=== PATIENT | male | born 1945 | race Caucasian/White ===

== ENCOUNTER 2016-05-15 10:08 | Outpatient (CLI) | payer MEDICARE ==
--- NOTE | 2016-05-15 13:24 | DIAGNOSTIC IMAGING REPORT ---
PROCEDURE: XR BARIUM SWALLOW INDICATION: Dysphagia. Difficulty swallowing pills. TECHNIQUE: Double contrast study. Fluoroscopy time, 2.3 minutes; 2290.06 mGy. 87 fluoroscopic images (including cine fluoroscopy of the esophagus). COMPARISON: None. FINDINGS: Pharyngoesophagus demonstrates mild to moderate prominence of the posterior cricopharyngeus muscle with 30% narrowing of the proximal esophagus. There is no evidence of aspiration. The patient was able to swallow barium impregnated pill without difficulty. There are mild tertiary contractions of the mid and distal esophagus. Esophagus is otherwise normal. There is no evidence of reflux. IMPRESSION: 1. There is mild to moderate prominence of the posterior cricopharyngeus muscle resulting in 30% narrowing of the proximal esophagus. However, there was no evidence of aspiration and the patient was able to swallow barium pill without difficulty. 2. Mild tertiary contractions of the mid and distal esophagus (may be within normal limits in a patient of this age). 3. Otherwise negative esophagram. 4. Findings discussed with the patient and called to Dr. Zuleta.
== END 2016-05-15 23:00 ==
LOC: XR SRH 10:08
DX: R13.14 Dysphagia, pharyngoesophageal phase (principal)

== ENCOUNTER 2016-06-16 13:46 | Emergency (ER) | payer MEDICARE ==
--- NOTE | 2016-06-16 15:38 | DIAGNOSTIC IMAGING REPORT ---
PROCEDURE: XR CHEST 1 VIEW INDICATION: Dizziness. Presyncope. TECHNIQUE: Portable AP view (1450 hours). COMPARISON: None. FINDINGS: Allowing for suboptimal inspiration, there is mild volume loss at the right lung base. Left lung is clear. Heart and mediastinum are normal. Thorax is normal. IMPRESSION: 1. Allowing for suboptimal inspiration, there is mild volume loss at the right lung base. 2. Otherwise negative chest.
--- NOTE | 2016-06-16 16:46 | DIAGNOSTIC IMAGING REPORT ---
PROCEDURE: CT HEAD WITHOUT CONTRAST INDICATION: Severe dizziness. TECHNIQUE: Noncontrast axial images with sagittal and coronal reformations. COMPARISON: None. FINDINGS: Allowing for mild motion, and ventricles are within normal limits. No evidence of an acute process or hemorrhage. There is mild mucosal thickening in the ethmoid air cells (most likely chronic). Sinuses and mastoids are otherwise normal. IMPRESSION: 1. Allowing for mild motion, negative head CT. 2. Mild mucosal thickening in the ethmoid air cells (most likely chronic). 3. Findings discussed with Dr. Ha Quintero at [address] scans at this facility use dose modulation, iterative reconstruction, and/or weight-based dosing when appropriate to reduce radiation dose to as low as reasonably achievable.
--- NOTE | 2016-06-16 17:09 | ED ORDER SUMMARY ---
..... Patient: JAYLEN POWER OrderSheet [facility] VisitID: [id number] [address] [place] [address] 70y, M Registration Date/Time: 06/16/2016 ORDER SHEET Weight: 115.2 kg (stated) Allergies: No Known Drug Allergy GENERAL ORDERS: POC Glucose (14:09 06/16/2016 Merline SOLORZANO) (14:11 JSimbeck R.N.) Chest 1V Urgent (14:13 06/16/2016 Merline SOLORZANO) (Ack 14:16 LMuller) (16:03 LMuller) Staff Developer (Continuous) (14:14 06/16/2016 Merline SOLORZANO) (14:25 JSimbeck R.N.) CBC w Diff Urgent (14:14 06/16/2016 Merline SOLORZANO) (Ack 14:16 LMuller) (15:52 JSimbeck R.N.) CMP Urgent (14:14 06/16/2016 Merline SOLORZANO) (Ack 14:16 LMuller) (15:52 JSimbeck R.N.) UA-Culture if indicated Urgent (14:14 06/16/2016 Merlnie SOLORZANO) (Ack 14:16 LMuller) (15:53 MWinterer R.N.) PT with INR Urgent (14:14 06/16/2016 Merline SOLORZANO) (Ack 14:16 LMuller) (15:52 JSimbeck R.N.) PTT Urgent (14:14 06/16/2016 Merline SOLORZANO) (Ack 14:16 LMuller) (15:52 JSimbeck R.N.) Amylase Urgent (14:14 06/16/2016 Merline SOLORZANO) (Ack 14:16 LMuller) (15:52 JSimbeck R.N.) Lipase Urgent (14:14 06/16/2016 Merline SOLORZANO) (Ack 14:16 LMuller) (15:52 JSimbeck R.N.) CPK Urgent (14:14 06/16/2016 Merline SOLORZANO) (Ack 14:16 LMuller) (15:52 JSimbeck R.N.) Troponin-I Urgent (14:14 06/16/2016 Merline SOLORZANO) (Ack 14:16 LMuller) (15:52 JSimbeck R.N.) Oxygen (2 L/min) (NC) (14:14 06/16/2016 Merline SOLORZANO) (14:48 JSimbeck R.N.) Pulse oximeter (14:14 06/16/2016 Merline SOLORZANO) (14:25 JSimbeck R.N.) EKG - ER Stat (14:14 06/16/2016 Merline SOLORZANO) (Ack 14:16 LMuller) (14:34 LMuller) Vitals - Orthostatic (14:14 06/16/2016 Merline SOLORZANO) (15:52 JSimbeck R.N.) Urine Drug Screen Urgent (14:14 06/16/2016 Merline SOLORZANO) (Ack 14:16 LMuller) (15:53 MWinterer R.N.) CT Head wo Cont Urgent (16:00 06/16/2016 Merline SOOLRZANO) (Ack 16:03 LMuller) (16:17 Phong) TSH Urgent (16:44 06/16/2016 Merline SOLORZANO) (16:46 LMuller) MEDICATION ORDERS: IV FLUIDS: IV Saline Lock (14:14 06/16/2016 Merline SOLORZANO) (14:48 JSimbeck R.N.) ORDER SHEET NOTES: [Electronically signed by Ernie Montemayor R.N. (17:22 06/16/2016)] [Electronically signed by Ha Quintero MD (18:07 06/16/2016)] [Electronically locked/signed by Ernie Montemayor R.N. (17:22 06/16/2016)]
--- NOTE | 2016-06-16 17:09 | ED ORDER SUMMARY ---
..... Patient: JAYLEN POWER OrderSheet [facility] VisitID: [id number] [address] [place] [address] 70y, M Registration Date/Time: 06/16/2016 ORDER SHEET Weight: 115.2 kg (stated) Allergies: No Known Drug Allergy GENERAL ORDERS: POC Glucose (14:09 06/16/2016 Merline SOLORZANO) (14:11 JSimbeck R.N.) Chest 1V Urgent (14:13 06/16/2016 Merline SOLORZANO) (Ack 14:16 LMuller) (16:03 LMuller) Certified Energy Manager (Continuous) (14:14 06/16/2016 Merline SOLORZANO) (14:25 JSimbeck R.N.) CBC w Diff Urgent (14:14 06/16/2016 Merline SOLORZANO) (Ack 14:16 LMuller) (15:52 JSimbeck R.N.) CMP Urgent (14:14 06/16/2016 Merline SOLORZANO) (Ack 14:16 LMuller) (15:52 JSimbeck R.N.) UA-Culture if indicated Urgent (14:14 06/16/2016 Merline SOLORZANO) (Ack 14:16 LMuller) (15:53 MWinterer R.N.) PT with INR Urgent (14:14 06/16/2016 Merline SOLORZANO) (Ack 14:16 LMuller) (15:52 JSimbeck R.N.) PTT Urgent (14:14 06/16/2016 Merline SOLORZANO) (Ack 14:16 LMuller) (15:52 JSimbeck R.N.) Amylase Urgent (14:14 06/16/2016 Merline SOLORZANO) (Ack 14:16 LMuller) (15:52 JSimbeck R.N.) Lipase Urgent (14:14 06/16/2016 Merline SOLORZANO) (Ack 14:16 LMuller) (15:52 JSimbeck R.N.) CPK Urgent (14:14 06/16/2016 Merline SOLORZANO) (Ack 14:16 LMuller) (15:52 JSimbeck R.N.) Troponin-I Urgent (14:14 06/16/2016 Merline SOLORZANO) (Ack 14:16 LMuller) (15:52 JSimbeck R.N.) Oxygen (2 L/min) (NC) (14:14 06/16/2016 Merline SOLORZANO) (14:48 JSimbeck R.N.) Pulse oximeter (14:14 06/16/2016 Merline SOLORZANO) (14:25 JSimbeck R.N.) EKG - ER Stat (14:14 06/16/2016 Merline SOLORZANO) (Ack 14:16 LMuller) (14:34 LMuller) Vitals - Orthostatic (14:14 06/16/2016 Merline SOLORZANO) (15:52 JSimbeck R.N.) Urine Drug Screen Urgent (14:14 06/16/2016 Merline SOLORZANO) (Ack 14:16 LMuller) (15:53 MWinterer R.N.) CT Head wo Cont Urgent (16:00 06/16/2016 Merline SOLORZANO) (Ack 16:03 LMuller) (16:17 Phong) TSH Urgent (16:44 06/16/2016 Merline SOLORZANO) (16:46 LMuller) MEDICATION ORDERS: IV FLUIDS: IV Saline Lock (14:14 06/16/2016 Merline SOLORZANO) (14:48 JSimbeck R.N.) ORDER SHEET NOTES: [Electronically signed by Ernie Montemayor R.N. (17:22 06/16/2016)] [Electronically signed by Ha Quintero MD (18:07 06/16/2016)] [Electronically locked/signed by Ernie Montemayor R.N. (17:22 06/16/2016)]
--- NOTE | 2016-06-16 17:09 | ED CLINICAL REPORT ---
Clinical Report - Physicians/Mid Levels [facility] [address] [place] [address] 06/16/2016 13:47 Patient: JAYLEN POWER Time Seen: 14:13. Arrived- By private vehicle. Historian- patient. HISTORY OF PRESENT ILLNESS Chief Complaint: DIZZINESS. Severity described as severe at its maximum. Described as sense of falling and feeling off balance and light-headed. This started several months ago and is still present. It was abrupt in onset and has been intermittent. The patient has had hearing loss (chronically). No tinnitus or ear pain. Similar symptoms previously: Chronically, milder. REVIEW OF SYSTEMS No chills, fever, sweats, calf pain or chest pain. No cough, difficulty breathing, abdominal pain, constipation or diarrhea. No nausea, vomiting or urinary problems. He has had moderate pedal edema involving the right and left leg (chronically). It has been similar to previous symptoms. he reports chronic burning pain in his feet which he attributes to his neuropathy. All systems otherwise negative, except as recorded above. PAST HISTORY ( PCP - Song). Problems: Neuropathy. Hypothyroidism. Congestive Heart Failure. Diabetes Mellitus. Arthritis. Hypertension. Dental Caries. Dental Pain. Additional Surgeries: Cholecystectomy. Medications: Nifedical XL Oral. Albuterol Sulfate Inhalation. ChlordiazePOXIDE HCl Oral. CeleBREX Oral. Levothyroxine Sodium Oral. TERAZOSIN HCl Oral. Potassium Oral. MetFORMIN HCl Oral (Tablet 500 mg) 1 tablet, 2x a day. Atenolol Oral. Lyrica Oral (Capsule 150 mg) 1 capsule. Mexiletine HCl Oral. Vicodin Oral (Tablet 5-500 mg), PRN as needed. Furosemide Oral (Tablet 80 mg) 1 tablet, 2x a day. Allergies: No Known Drug Allergy. SOCIAL HISTORY Never smoker. No alcohol use or drug use. Residence: [place] he lives with spouse. Has good social support. FAMILY HISTORY Denies family medical history. ADDITIONAL NOTES The nursing notes have been reviewed. PHYSICAL EXAM Vital Signs: 06/16/2016 13:57 BP: 112/64. HR: 65. RR: 20. O2 saturation: 98%. Temp: 98.3 F. Pain level now: 11/18. Have been reviewed. Appearance: Alert. Eyes: Pupils equal, round and reactive to light. No nystagmus. Extraocular movements normal. ENT: Pharynx normal. Neck: Normal inspection. Neck supple. No meningeal signs or carotid bruit. CVS: Normal heart rate and rhythm. Heart sounds normal. Respiratory: No respiratory distress. Breath sounds normal. Abdomen: Soft and nontender. No organomegaly. Back: Normal inspection. No CVA tenderness. Skin: Skin warm and dry. Normal skin color. No rash. Normal skin turgor. Extremities: Extremities exhibit normal ROM. No lower extremity edema. Neuro: Alert. Oriented X 3. Speech normal. Cranial nerves normal (as tested). No cerebellar findings. No motor deficit. No sensory deficit. LABS, X-RAYS, AND EKG EKG: Normal EKG. Rate: 63. Prior EKG unavailable. The study has been independently viewed by me. Chest X-ray: (IMPRESSION: 1. Allowing for suboptimal inspiration, there is mild volume loss at the right lung base. 2. Otherwise negative chest.). The X-rays were interpreted by the radiologist and contemporaneously by me. CT Head: (IMPRESSION: 1. Allowing for mild motion, negative head CT. 2. Mild mucosal thickening in the ethmoid air cells (most likely chronic).). The study was interpreted by the radiologist and contemporaneously by me. Laboratory Tests: UA-Culture if indicated: (DIANNA: 06/16/2016 15:30) ( MsgRcvd 06/16/2016 15:54) Final results Test Result Flag Units (Reference) URINE COLOR YELLOW URINE APPEARANCE CLEAR URINE GLUCOSE NEGATIVE (NEGATIVE) URINE BILIRUBIN NEGATIVE (NEGATIVE) URINE KETONE NEGATIVE (NEGATIVE) URINE SPECIFIC GRAVITY <= 1.005 L (1.010-1.030) URINE PH 5.5 (5.0-8.0) URINE PROTEIN NEGATIVE (NEGATIVE) URINE UROBILINOGEN 0.2 EU/dL (0.2-1.0) URINE NITRITE NEGATIVE (NEGATIVE) URINE BLOOD NEGATIVE (NEGATIVE) URINE LEUK ESTERASE NEGATIVE (NEGATIVE) URINE RBC NONE SEEN rbc/hpf (0-1) URINE WBC NONE SEEN wbc/hpf (0-1) URINE EPITHELIAL CELLS 0-1 EPI/hpf (0-5) URINE BACTERIA NONE SEEN (NONE SEEN) URINE COMMENT CULT NOT INDICATED URINE CULTURES ARE SET-UP BASED ON THE FOLLOWING CRITERIA:POSITIVE NITRITEPOSITIVE LEUKOCYTE ESTERASEGREATER THAN 10 WHITE BLOOD CELLSMODERATE (2+) OR GREATER BACTERIA CBC w Diff: (DIANNA: 06/16/2016 15:05) ( [facility] 06/16/2016 15:26) Final results Test Result Flag Units (Reference) WHITE BLOOD COUNT 8.1 K/uL (4.5-11.5) RED BLOOD COUNT 4.53 M/uL (4.50-5.90) HEMOGLOBIN 13.3 L gm/dL (13.5-17.5) HEMATOCRIT 40.0 L % (41.0-53.0) MEAN CELL VOLUME 88 fL (80-100) MEAN CORPUSCULAR HGB 29 pg (26-34) MEAN CORPUSCULAR HGB CONC 33 g/dL (31-37) RED CELL DISTRIBUTION WIDTH 14.0 % (11.6-14.8) PLATELET COUNT 253 K/uL (150-400) NEUTROPHIL % 59.0 % (50-75) LYMPH % 29.8 % (25-40) MONO % 7.0 % (3-14) EOSINOPHIL % 4.0 % (0-4) BASOPHIL % 0.2 % (0-2) PT with INR: (DIANNA: 06/16/2016 15:05) ( [facility] 06/16/2016 15:33) Final results Test Result Flag Units (Reference) INR 0.9 (0.8-1.2) Low Intensity Therapy: INR 1.5-2.0 PT range 18.5-23.1Mod.Intensity Therapy: INR 2.0-3.0 PT range 23.1-31.5High Intensity Therapy: INR 2.5-3.5 PT range 27.4-35.5High Intensity Therapy 2: INR 3.0-4.0 PT range 31.5-39.3 APTT 28 SECONDS (24-34) CMP: (DIANNA: 06/16/2016 15:05) ( [facility] 06/16/2016 15:41) Final results Test Result Flag Units (Reference) GLUCOSE 119 H mg/dL (70-110) BUN 9 mg/dL (7-18) CREATININE 0.9 mg/dL (0.6-1.3) Estimated GFR >60 mL/min Estimated GFR- >60 mL/min Note: Persistent reduction over 3 months in eGFR<60 mL/min/1.73 m2 defines CKD. Patients with eGFR values>=60 mL/min/1.73 m2 may also have CKD if evidence ofpersistent proteinuria. Additional information may be foundat www.kidney.org. SODIUM 146 H mmol/L (136-145) POTASSIUM 4.1 mmol/L (3.5-5.1) CHLORIDE 104 mmol/L (98-107) CARBON DIOXIDE 31 mmol/L (21-32) CALCIUM 8.7 mg/dL (8.5-10.1) TOTAL PROTEIN 6.9 g/dL (6.4-8.2) ALBUMIN 3.8 g/dL (3.3-5.0) BILIRUBIN, TOTAL 0.8 mg/dL (0.0-1.0) ALKALINE PHOSPHATASE 74 U/L (46-116) AST (SGOT) 15 U/L (15-37) ALT (SGPT) 30 U/L (12-78) LIPASE 138 U/L (73-393) AMYLASE 83 U/L (25-115) CPK 79 U/L (24-260) TROPONIN I <0.05 L ng/mL (0.00-1.5) TROPONIN REFERENCE RANGE:<0.1 NEGATIVE0.1-1.5 INDETERMINANT>1.5 POSITIVE . PROGRESS AND PROCEDURES Course of Care: Patient is stable. Patient/family counseled. Old medical records reviewed. Disposition: Discharged. Condition: stable. CLINICAL IMPRESSION Dizziness INSTRUCTIONS No driving or operating machinery while taking medication. Drink plenty of fluids. Warnings: Further evaluation is necessary. GENERAL WARNINGS: Return or contact your physician immediately if your condition worsens or changes unexpectedly, if not improving as expected, or if other problems arise. Your Current Medications: CONTINUE TAKING THE FOLLOWING MEDICATIONS: Albuterol Sulfate Inhalation. Atenolol Oral. CeleBREX Oral. ChlordiazePOXIDE HCl Oral. Furosemide Oral : Tablet 80 mg, 1 tablet 2x a day. Levothyroxine Sodium Oral. Lyrica Oral : Capsule 150 mg, 1 capsule. MetFORMIN HCl Oral : Tablet 500 mg, 1 tablet 2x a day. Mexiletine HCl Oral. Nifedical XL Oral. Potassium Oral. TERAZOSIN HCl Oral. Vicodin Oral : Tablet 5-500 mg, PRN, prn. Prescription Medications: Meclizine 25 mg: Take 1 tablet orally every 8 hours as needed for dizziness. Dispense thirty (30). No refills. Follow-up: Follow up with a neurologist- as recommended by your primary care physician. Understanding of the discharge instructions verbalized by patient and family. Follow-up with: Jose Zuleta MD, [facility], [phone], [facility], [address] [place] [address] Follow up in five days. Call for the next available appointment. (Electronically signed by Ha Quintero MD 06/16/2016 18:07)
--- NOTE | 2016-06-16 17:09 | ED NURSING NOTES ---
Clinical Report - Nurses [facility] [address] [place] [address] 06/16/2016 13:47 Patient: JAYLEN POWER TRIAGE Triage time 13:57. Acuity: LEVEL 3. Chief Complaint: DIZZINESS, WEAKNESS, LIGHT HEADED and NEAR-SYNCOPE and (Onset 2 months ago. Weakness, dizzy, lightheaded, near syncope at times. When he has these sx he feels like his heart is pounding/fluttering. Reports intermittent numbness and tingling around his mouth (none at this time). He also feels like his voice has changed and his tongue is swollen for past few days.). 14:08 06/16/16. ( BG 133). SEPSIS SCREEN: Sepsis Screen. Negative (no infection suspected/documented). NICOLLE COMA SCORE: Nicolle Coma Scale: 15- eyes open spontaneously (4); best verbal response- oriented x 4 (5); best motor response- obeys commands (6). --14:11 Ernie Montemayor R.N. 13:57 06/16/16. BP: 112/64. HR: 65. RR: 20. O2 saturation: 98% on room air. Temp: 98.3 F (oral). Pain level now: 7/10. --14:11 Ernie Montemayor R.N. Weight: 115.2 kg stated. Height/Length: 67 inches Per Patient. BMI: 39.8. --13:57 Ernie Montemayor R.N. Medications Furosemide Oral (Tablet 80 mg) 1 tablet, 2x a day. --14:02 Ernie Montemayor R.N. Atenolol Oral. Lyrica Oral (Capsule 150 mg) 1 capsule. Mexiletine HCl Oral. Vicodin Oral (Tablet 5-500 mg), PRN as needed. --14:02 Ernie Montemayor R.N. MetFORMIN HCl Oral (Tablet 500 mg) 1 tablet, 2x a day. --14:02 Ernie Montemayor R.N. Potassium Oral. --14:03 Ernie Montemayor R.N. TERAZOSIN HCl Oral. --14:04 Ernie Montemayor R.N. Levothyroxine Sodium Oral. --14:04 Ernie Montemayor R.N. CeleBREX Oral. --14:04 Ernie Montemayor R.N. ChlordiazePOXIDE HCl Oral. --14:05 Ernie Montemayor R.N. Albuterol Sulfate Inhalation. --14:05 Ernie Montemayor R.N. Nifedical XL Oral. --14:05 Ernie Montemayor R.N. The following entry was struck and corrected by Ernie Montemayor R.N., 14:03 (06/16/16) Reason for correction - other(correction). <<STRICKEN ENTRY-- Furosemide Oral, daily. --14:02 Ernie Montemayor R.N. --END STRIKE>>. Allergies No Known Drug Allergy. --14:02 Ernie Montemayor R.N. History Arrived by private vehicle. SOCIAL HX: Never smoker. No alcohol use or drug use. ABUSE ASSESSMENT: No report of abuse. --14:11 Ernie Montemayor R.N. PROBLEMS: Diabetes Mellitus. Tetanus Status. Hypertension. Arthritis. Dental Caries. Dental Pain. Immunizations. --14:03 Ernie Montemayor R.N. Congestive Heart Failure. --14:06 Ernie Montemayor R.N. Alcoholism. --14:08 Ernie Montemayor R.N. ADDITIONAL SURGERIES: Cholecystectomy. --14:03 Ernie Montemayor R.N. Interventions ID band on patient. To treatment room. --14:11 Ernie Montemayor R.N. NURSING PROGRESS NOTES EKG time: (14:34 PM). EKG was performed by a tech and shown to the ED physician. --14:41 Sonu Samia 14:35 06/16/2016 Site #1 started via IV in the right forearm with an 20g angiocath, with aseptic technique and good blood return; one attempt. Saline lock flushed with 10 mL saline. --14:48 Ernie Montemayor R.N. 15:25. Patient ID band checked for patient name and birthdate: patient confirmed. Clean catch urine collected with return of yellow-colored clear urine; sample sent to lab for urinalysis and culture. Specimen labeled in the presence of the patient. ( First contact with pt. Pt assisted to stand at bedside, voided 600cc light yellow urine. UA sent to lab. Pt slightly SOB with activity). --15:37 Bobbi Cortez R.N. 15:25 06/16/16. BP: 118/50. HR: 63. RR: 24. O2 saturation: 96% on room air. Temp: deferred. Pain level now: 11/18. Additional comments: leg pain . --15:37 Bobbi Cortez R.N. 15:38 06/16/16. BP: 96/48 (large adult cuff) taken on the left arm, via an automated monitor, while lying. HR: 65. RR: 16. --15:42 Samia Ascencio 15:43 06/16/16. BP: 126/63 (large adult cuff) taken on the left arm, via an automated monitor, while sitting. RN notified. HR: 66. RR: 18 (regular and labored). --15:44 Sonu Samia ( Pt reports pain over the forehead, vision got blurry "feet are cold" while standing up for the orthostatic vital signs and after a few seconds "they(feet) warmed up now".). --15:51 Samia Ascencio 15:48 06/16/16. BP: 125/59 (large adult cuff) taken on the left arm, via an automated monitor, while standing. RN notified. HR: 68. RR: 18 (regular and labored). --15:51 Samia Ascencio. DISPOSITION / DISCHARGE 17:06/16/2016 Site #1 removed upon discharge. Bandage applied. --17:20 Ernie Montemayor R.N. 17:19 06/16/16. Departure time: 1715. Cardiac rhythm: normal sinus rhythm. Condition at departure: unchanged and stable. No learning barriers present. Discharge instructions provided and reviewed with the patient, spouse and family. Reviewed warnings. Reviewed medication(s). Reviewed referrals. Patient, spouse and family verbalized understanding. Written instructions provided in Italian. The patient was discharged by the physician. He was discharged home and accompanied by spouse. He left the Emergency Department in a wheelchair and via private vehicle. Patient driving. --17:20 Ernie Montemayor R.N. 17:05 06/16/16. BP: 116/63. HR: 68. RR: 20. O2 saturation: 97% on room air. Temp: 98 F (oral). Pain level now: 11/18. --17:20 Ernie Montemayor R.N. Locked/Released at 06/16/2016 17:22 by Ernie Montemayor R.N.
--- NOTE | 2016-06-16 18:07 | ED DISCHARGE INSTRUCTIONS ---
Patient: JAYLEN POWER General Instructions [facility] VisitID: [id number] [place] [address] 70y, M Registration Date/Time: 06/16/2016 Dizziness INSTRUCTIONS No driving or operating machinery while taking medication. Drink plenty of fluids. Warnings: Further evaluation is necessary. GENERAL WARNINGS: Return or contact your physician immediately if your condition worsens or changes unexpectedly, if not improving as expected, or if other problems arise. Your Current Medications: CONTINUE TAKING THE FOLLOWING MEDICATIONS: Albuterol Sulfate Inhalation. Atenolol Oral. CeleBREX Oral. ChlordiazePOXIDE HCl Oral. Furosemide Oral : Tablet 80 mg, 1 tablet 2x a day. Levothyroxine Sodium Oral. Lyrica Oral : Capsule 150 mg, 1 capsule. MetFORMIN HCl Oral : Tablet 500 mg, 1 tablet 2x a day. Mexiletine HCl Oral. Nifedical XL Oral. Potassium Oral. TERAZOSIN HCl Oral. Vicodin Oral : Tablet 5-500 mg, PRN, prn. Prescription Medications: Meclizine 25 mg: Take 1 tablet orally every 8 hours as needed for dizziness. Dispense thirty (30). No refills. Follow-up: Follow up with a neurologist- as recommended by your primary care physician. Understanding of the discharge instructions verbalized by patient and family. Follow-up with: Jose Zuleta MD, [facility], [phone], [facility], [address] [place] [address] Follow up in five days. Call for the next available appointment. ADDITIONAL INFORMATION Dizziness [Uncertain Cause] Dizziness is a common symptom sometimes described as "lightheadedness" or feeling like you are going to faint. If it lasts for only a few seconds and is related to changes in position (such as getting up after lying or sitting for a long time), it is usually not a sign of anything serious. Dizziness that lasts for minutes to hours, or comes on for no apparent reason, may be a sign of a more serious problem (such as dehydration, a medicine reaction, disease of the heart or brain). Today's exam did not show an exact cause for your dizzy spell . Sometimes additional tests are required before a cause can be found. Therefore, it is important to follow up with your doctor if your symptoms continue. Home Care: 1) If a dizzy spell occurs and lasts more than a few seconds, lie down until it passes. If you are lying down, then you cannot hurt yourself by falling if you do faint. 2) Do not drive or operate dangerous equipment until the dizzy spells have stopped for at least 48 hours. 3) If dizzy spells occur with sudden standing, this may be a sign of mild dehydration. Drink extra fluids over the next few days. 4) If you recently started a new medicine or if you had the dose of a current medicine increased (especially blood pressure medicine), talk with the prescribing doctor about your symptoms. Dose adjustments may be needed. Follow Up with your doctor for further evaluation within the next seven days, if your symptoms continue. Get Prompt Medical Attention if any of the following occur: -- Worsening of your symptoms -- Fainting, headache or seizure -- Repeated vomiting -- Feeling like you or the room is spinning -- Chest, arm, neck, back or jaw pain -- Palpitations (the sense that your heart is fluttering or beating fast or hard) -- Shortness of breath -- Blood in vomit or stool (black or red color) -- Weakness of an arm or leg or one side of the face -- Difficulty with speech or vision Vertigo [Unknown Cause] The "inner ear" is located behind the middle ear. It is part of the balance center of your body. Disease of the inner ear causes vertigo -- a false feeling of motion. It feels as if you or the room is spinning. A vertigo attack may cause sudden nausea, vomiting and heavy sweating. Severe vertigo causes a loss of balance and can cause you to fall. During vertigo, small head movements and changes in body position will often make the symptoms worse. The causes of vertigo include: Inflammation of the inner ear Disease of the nerves to the inner ear Movement of calcium particles in the inner ear Poor blood flow to the balance centers of the brain An episode of vertigo may last seconds, minutes or hours. Once you are over the first episode, it may never return. However, sometimes symptoms may recur off and on over several weeks or longer, depending on the cause. There may be ringing in the ears or hearing loss, which may be temporary or permanent. Home Care: If symptoms are severe, rest quietly in bed. Change positions very slowly. There is usually one position that will feel best, such as lying on one side or lying on your back with your head slightly raised on pillows. Do not drive or work with dangerous machinery for one week after symptoms go away, in case the symptoms suddenly return. Take medicine as prescribed to relieve your symptoms. Unless another medicine was prescribed for nausea, vomiting and vertigo, you may use [id number] motion sickness pills, such as meclizine (Bonine, Bonamine, Antivert) or dimenhydrinate (Dramamine). Follow Up with your doctor or as directed by our staff. Tell the doctor if your ears keep ringing, or if your hearing does not return to normal. Get Prompt Medical Attention if any of the following occur: Vertigo gets worse and is not controlled by medicine prescribed Repeated vomiting not relieved by medicine prescribed Increased weakness or fainting Severe headache or unusually drowsy or confused Weakness of an arm or leg or one side of the face Difficulty with speech or vision Meclizine Hydrochloride Oral tablet What is this medicine? MECLIZINE (MEK li zeen) is an antihistamine. It is used to prevent nausea, vomiting, or dizziness caused by motion sickness. It is also used to prevent and treat vertigo (extreme dizziness or a feeling that you or your surroundings are tilting or spinning around). How should I use this medicine? Take this medicine by mouth with a glass of water. Follow the directions on the prescription label. If you are using this medicine to prevent motion sickness, take the dose at least 1 hour before travel. If it upsets your stomach, take it with food or milk. Take your doses at regular intervals. Do not take your medicine more often than directed. Talk to your methods and procedures analyst regarding the use of this medicine in children. Special care may be needed. What side effects may I notice from receiving this medicine? Side effects that you should report to your doctor or health careers adviser as soon as possible: fainting spells fast or irregular heartbeat Side effects that usually do not require medical attention (report to your doctor or health careers adviser if they continue or are bothersome): constipation difficulty passing urine difficulty sleeping headache stomach upset What may interact with this medicine? barbiturate medicines for inducing sleep or treating seizures digoxin medicines for anxiety or sleeping problems, like alprazolam, diazepam or temazepam medicines for hay fever and other allergies medicines for mental depression medicines for movement abnormalities as in Parkinson's disease, or for stomach problems medicines for pain medicines that relax muscles What if I miss a dose? If you miss a dose, take it as soon as you can. If it is almost time for your next dose, take only that dose. Do not take double or extra doses. Where should I keep my medicine? Keep out of the reach of children. Store at room temperature between 15 and 30 degrees C (59 and 86 degrees F). Keep container tightly closed. Throw away any unused medicine after the expiration date. What should I tell my health care provider before I take this medicine? They need to know if you have any of these conditions: asthma glaucoma prostate trouble stomach problems urinary problems an unusual or allergic reaction to meclizine, other medicines, foods, dyes, or preservatives or trying to get breast-feeding What should I watch for while using this medicine? If you are taking this medicine on a regular schedule, visit your doctor or health careers adviser for regular checks on your progress. You may get dizzy, drowsy or have blurred vision. Do not drive, use machinery, or do anything that needs mental alertness until you know how this medicine affects you. Do not stand or sit up quickly, especially if you are an older patient. This reduces the risk of dizzy or fainting spells. Alcohol can increase possible dizziness. Avoid alcoholic drinks. Your mouth may get dry. Chewing sugarless gum or sucking hard candy, and drinking plenty of water may help. Contact your doctor if the problem does not go away or is severe. This medicine may cause dry eyes and blurred vision. If you wear contact lenses you may feel some discomfort. Lubricating drops may help. See your eye doctor if the problem does not go away or is severe. You have been given the following additional information: Dizziness, Unk Cause Vertigo, Unspecified Meclizine Hydrochloride Oral tablet No driving or operating machinery while taking medication. (Electronically signed by Ha Quintero MD 06/16/2016 18:07)
--- NOTE | 2016-06-16 18:07 | ED DISCHARGE INSTRUCTIONS ---
Patient: JAYLEN POWER General Instructions [facility] VisitID: [id number] [place] [address] 70y, M Registration Date/Time: 06/16/2016 Dizziness INSTRUCTIONS No driving or operating machinery while taking medication. Drink plenty of fluids. Warnings: Further evaluation is necessary. GENERAL WARNINGS: Return or contact your physician immediately if your condition worsens or changes unexpectedly, if not improving as expected, or if other problems arise. Your Current Medications: CONTINUE TAKING THE FOLLOWING MEDICATIONS: Albuterol Sulfate Inhalation. Atenolol Oral. CeleBREX Oral. ChlordiazePOXIDE HCl Oral. Furosemide Oral : Tablet 80 mg, 1 tablet 2x a day. Levothyroxine Sodium Oral. Lyrica Oral : Capsule 150 mg, 1 capsule. MetFORMIN HCl Oral : Tablet 500 mg, 1 tablet 2x a day. Mexiletine HCl Oral. Nifedical XL Oral. Potassium Oral. TERAZOSIN HCl Oral. Vicodin Oral : Tablet 5-500 mg, PRN, prn. Prescription Medications: Meclizine 25 mg: Take 1 tablet orally every 8 hours as needed for dizziness. Dispense thirty (30). No refills. Follow-up: Follow up with a neurologist- as recommended by your primary care physician. Understanding of the discharge instructions verbalized by patient and family. Follow-up with: Jose Zuleta MD, [facility], [phone], [facility], [address] [place] [address] Follow up in five days. Call for the next available appointment. ADDITIONAL INFORMATION Dizziness [Uncertain Cause] Dizziness is a common symptom sometimes described as "lightheadedness" or feeling like you are going to faint. If it lasts for only a few seconds and is related to changes in position (such as getting up after lying or sitting for a long time), it is usually not a sign of anything serious. Dizziness that lasts for minutes to hours, or comes on for no apparent reason, may be a sign of a more serious problem (such as dehydration, a medicine reaction, disease of the heart or brain). Today's exam did not show an exact cause for your dizzy spell . Sometimes additional tests are required before a cause can be found. Therefore, it is important to follow up with your doctor if your symptoms continue. Home Care: 1) If a dizzy spell occurs and lasts more than a few seconds, lie down until it passes. If you are lying down, then you cannot hurt yourself by falling if you do faint. 2) Do not drive or operate dangerous equipment until the dizzy spells have stopped for at least 48 hours. 3) If dizzy spells occur with sudden standing, this may be a sign of mild dehydration. Drink extra fluids over the next few days. 4) If you recently started a new medicine or if you had the dose of a current medicine increased (especially blood pressure medicine), talk with the prescribing doctor about your symptoms. Dose adjustments may be needed. Follow Up with your doctor for further evaluation within the next seven days, if your symptoms continue. Get Prompt Medical Attention if any of the following occur: -- Worsening of your symptoms -- Fainting, headache or seizure -- Repeated vomiting -- Feeling like you or the room is spinning -- Chest, arm, neck, back or jaw pain -- Palpitations (the sense that your heart is fluttering or beating fast or hard) -- Shortness of breath -- Blood in vomit or stool (black or red color) -- Weakness of an arm or leg or one side of the face -- Difficulty with speech or vision Vertigo [Unknown Cause] The "inner ear" is located behind the middle ear. It is part of the balance center of your body. Disease of the inner ear causes vertigo -- a false feeling of motion. It feels as if you or the room is spinning. A vertigo attack may cause sudden nausea, vomiting and heavy sweating. Severe vertigo causes a loss of balance and can cause you to fall. During vertigo, small head movements and changes in body position will often make the symptoms worse. The causes of vertigo include: Inflammation of the inner ear Disease of the nerves to the inner ear Movement of calcium particles in the inner ear Poor blood flow to the balance centers of the brain An episode of vertigo may last seconds, minutes or hours. Once you are over the first episode, it may never return. However, sometimes symptoms may recur off and on over several weeks or longer, depending on the cause. There may be ringing in the ears or hearing loss, which may be temporary or permanent. Home Care: If symptoms are severe, rest quietly in bed. Change positions very slowly. There is usually one position that will feel best, such as lying on one side or lying on your back with your head slightly raised on pillows. Do not drive or work with dangerous machinery for one week after symptoms go away, in case the symptoms suddenly return. Take medicine as prescribed to relieve your symptoms. Unless another medicine was prescribed for nausea, vomiting and vertigo, you may use fwco-vjf-tfqqgyv motion sickness pills, such as meclizine (Bonine, Bonamine, Antivert) or dimenhydrinate (Dramamine). Follow Up with your doctor or as directed by our staff. Tell the doctor if your ears keep ringing, or if your hearing does not return to normal. Get Prompt Medical Attention if any of the following occur: Vertigo gets worse and is not controlled by medicine prescribed Repeated vomiting not relieved by medicine prescribed Increased weakness or fainting Severe headache or unusually drowsy or confused Weakness of an arm or leg or one side of the face Difficulty with speech or vision Meclizine Hydrochloride Oral tablet What is this medicine? MECLIZINE (MEK li zeen) is an antihistamine. It is used to prevent nausea, vomiting, or dizziness caused by motion sickness. It is also used to prevent and treat vertigo (extreme dizziness or a feeling that you or your surroundings are tilting or spinning around). How should I use this medicine? Take this medicine by mouth with a glass of water. Follow the directions on the prescription label. If you are using this medicine to prevent motion sickness, take the dose at least 1 hour before travel. If it upsets your stomach, take it with food or milk. Take your doses at regular intervals. Do not take your medicine more often than directed. Talk to your weight control lecturer regarding the use of this medicine in children. Special care may be needed. What side effects may I notice from receiving this medicine? Side effects that you should report to your doctor or health child care center administrator as soon as possible: fainting spells fast or irregular heartbeat Side effects that usually do not require medical attention (report to your doctor or health child care center administrator if they continue or are bothersome): constipation difficulty passing urine difficulty sleeping headache stomach upset What may interact with this medicine? barbiturate medicines for inducing sleep or treating seizures digoxin medicines for anxiety or sleeping problems, like alprazolam, diazepam or temazepam medicines for hay fever and other allergies medicines for mental depression medicines for movement abnormalities as in Parkinson's disease, or for stomach problems medicines for pain medicines that relax muscles What if I miss a dose? If you miss a dose, take it as soon as you can. If it is almost time for your next dose, take only that dose. Do not take double or extra doses. Where should I keep my medicine? Keep out of the reach of children. Store at room temperature between 15 and 30 degrees C (59 and 86 degrees F). Keep container tightly closed. Throw away any unused medicine after the expiration date. What should I tell my health care provider before I take this medicine? They need to know if you have any of these conditions: asthma glaucoma prostate trouble stomach problems urinary problems an unusual or allergic reaction to meclizine, other medicines, foods, dyes, or preservatives or trying to get breast-feeding What should I watch for while using this medicine? If you are taking this medicine on a regular schedule, visit your doctor or health child care center administrator for regular checks on your progress. You may get dizzy, drowsy or have blurred vision. Do not drive, use machinery, or do anything that needs mental alertness until you know how this medicine affects you. Do not stand or sit up quickly, especially if you are an older patient. This reduces the risk of dizzy or fainting spells. Alcohol can increase possible dizziness. Avoid alcoholic drinks. Your mouth may get dry. Chewing sugarless gum or sucking hard candy, and drinking plenty of water may help. Contact your doctor if the problem does not go away or is severe. This medicine may cause dry eyes and blurred vision. If you wear contact lenses you may feel some discomfort. Lubricating drops may help. See your eye doctor if the problem does not go away or is severe. You have been given the following additional information: Dizziness, Unk Cause Vertigo, Unspecified Meclizine Hydrochloride Oral tablet No driving or operating machinery while taking medication. (Electronically signed by Ha Quintero MD 06/16/2016 18:07)
--- NOTE | 2016-06-16 18:08 | ED MAR SUMMARY ---
..... Medication Administration Record [facility] [address] [place], [place] [id number] Patient: JAYLEN POWER Visit ID: [id number] 70y, M Weight: 115.2 kg Height/Length: 67 in BMI: 39.8 ALLERGIES: No Known Drug Allergy
--- NOTE | 2016-06-16 18:08 | ED MED RECONCILIATION SUMMARY ---
Patient: JAYLEN POWER Medication Reconciliation Report [facility] VisitID: [id number] [address] [place] [address] 70y, M Registration Date/Time: 06/16/2016 Weight: 115.2 kg Height/Length: 67 in. BMI: 39.8 ALLERGIES: No Known Drug Allergy The patient's Home Medications are listed below: CONTINUE TAKING THE FOLLOWING MEDICATIONS: Albuterol Sulfate Inhalation Atenolol Oral CeleBREX Oral ChlordiazePOXIDE HCl Oral Furosemide Oral (80 mg) 1 tablet, 2x a day Levothyroxine Sodium Oral Lyrica Oral (150 mg) 1 capsule MetFORMIN HCl Oral (500 mg) 1 tablet, 2x a day Mexiletine HCl Oral Nifedical XL Oral Potassium Oral TERAZOSIN HCl Oral Vicodin Oral (5-500 mg), PRN The source(s) of the original Home Medication information: Not obtained. The following Medications were given to the patient in the Emergency Department: None. The following Medications were prescribed to the patient: Meclizine 25 mg: Take 1 tablet orally every 8 hours as needed for dizziness. Dispense thirty (30). No refills. -- Ha Quintero MD
--- NOTE | 2016-06-16 18:08 | ED MED RECONCILIATION SUMMARY ---
Patient: JAYLEN POWER Medication Reconciliation Report [facility] VisitID: [id number] [address] [place] [address] 70y, M Registration Date/Time: 06/16/2016 Weight: 115.2 kg Height/Length: 67 in. BMI: 39.8 ALLERGIES: No Known Drug Allergy The patient's Home Medications are listed below: CONTINUE TAKING THE FOLLOWING MEDICATIONS: Albuterol Sulfate Inhalation Atenolol Oral CeleBREX Oral ChlordiazePOXIDE HCl Oral Furosemide Oral (80 mg) 1 tablet, 2x a day Levothyroxine Sodium Oral Lyrica Oral (150 mg) 1 capsule MetFORMIN HCl Oral (500 mg) 1 tablet, 2x a day Mexiletine HCl Oral Nifedical XL Oral Potassium Oral TERAZOSIN HCl Oral Vicodin Oral (5-500 mg), PRN The source(s) of the original Home Medication information: Not obtained. The following Medications were given to the patient in the Emergency Department: None. The following Medications were prescribed to the patient: Meclizine 25 mg: Take 1 tablet orally every 8 hours as needed for dizziness. Dispense thirty (30). No refills. -- Ha Quintero MD
--- NOTE | 2016-06-16 18:08 | ED MAR SUMMARY ---
..... Medication Administration Record [facility] [address] [place], [place] [id number] Patient: JAYLEN POWER Visit ID: [id number] 70y, M Weight: 115.2 kg Height/Length: 67 in BMI: 39.8 ALLERGIES: No Known Drug Allergy
== END 2016-06-16 17:15 | disposition home or self-care (01) ==
LOC: ED SRH 13:46
DX: R42 Dizziness and giddiness (principal); E11.9 Type 2 diabetes mellitus without complications; I10 Essential (primary) hypertension; I50.9 Heart failure, unspecified; Z79.84 Long term (current) use of oral hypoglycemic drugs; Z88.5 Allergy status to narcotic agent; Z79.51 Long term (current) use of inhaled steroids; Z79.899 Other long term (current) drug therapy
CPT/HCPCS: 90004; 90100; 90616; 92235; 92530; 92610; 92760; 92761; 92762; 92763; 92764; 92765; 92766; 92767; 93140; 94001; 94060; 95059